=== PATIENT | female | born 1965 | race Caucasian/White ===

== ENCOUNTER 2018-05-12 07:59 | Outpatient (CLI) | payer BC | END 2018-05-12 08:00 | disposition home or self-care (01) | LOC: C.MAMMO 08:00 | DX: Z12.31 Encounter for screening mammogram for malignant neoplasm of breast (principal) ==

== ENCOUNTER 2018-05-26 11:03 | Outpatient (CLI) | payer BC | END 2018-05-26 11:04 | disposition home or self-care (01) | LOC: C.MAMMO 11:03 | DX: N64.89 Other specified disorders of breast (principal) ==